=== PATIENT | male | born 1980 | race Caucasian/White ===

== ENCOUNTER 2016-09-29 22:03 | Emergency (ER) | payer SELFPAY ==
--- NOTE | 2016-09-29 22:36 | PHYS DOC ---
General Chief Complaint: finger amputation Stated Complaint: LACERATION LEFT HAND Time Seen by MD: 22:06 Source: patient, family Exam Limitations: clinical condition Problems: History of Present Illness Initial Comments Pt is 36/M to ED with his uncle for left 4th finger injury. Pt states that earlier tonight (reportedly 3 hours prior to arrival) he used tin snips at home to cut off his left ring finger at PIP joint. Pt mumbles some of which is unintelligible, he talks about a mideival game he lost. Denies any pain. There is oozing blood no pulsatile bleeding. Pt uncle states pt "normal" until a few days ago when he suddenly became obsessed with reading the Bible and the apocalypse. Uncle says pt felt he needed to prove something to someone by cutting off his own finger to save him from the apocalypse. Pt lives in uncle's basement has no known prior psychiatric history or suicide attempts, uncle says pt is an alcoholic. Pt did mention to his uncle today "I have to go to [place] to burn all the books." Fingertip not present in ED, family looking for it. Td status unknown, will update now. Pt is right hand dominant. ED VS: HR 132 bpm, RR 21, 100% RA, 134/87 Onset: other (3 hours prior) Severity: severe Pain/Injury Location: left 4th finger Method of Injury: incised Modifying Factors: improves with other Allergies: Coded Allergies: No Known Allergies (Verified Allergy, Unknown, 09/29/16) Past Medical History Medical History: other (alcoholism) Surgical History: noncontributory Social History Alcohol: heavy Drugs: marijuana Review of Systems Constitutional: denies fever Respiratory: denies cough, denies shortness of breath Cardiovascular: denies chest pain, denies syncope Gastrointestinal: denies diarrhea, denies vomiting Musculoskeletal: see HPI Skin: see HPI Psychiatric/Neurological: see HPI Physical Exam General Appearance: moderate distress (covered in dried blood) HEENT: normal ENT inspection Neck: full range of motion, supple Cardiovascular/Respiratory: normal peripheral pulses, normal breath sounds, tachycardia Back: no CVA tenderness, no vertebral tenderness Elbow/Forearm: normal inspection, non-tender, no evidence of injury Wrist: normal inspection, non-tender, no evidence of injury Hand: deformity (appears clean transverse amputation at PIP joint left 4th finger no FB/purulence/pulsatile bleeding.) Neurologic/Tendon: normal sensation, normal motor functions, responds to pain Psychiatric: alert, other (confused, tangential with flight of ideas, delusions , denies SI/HI) Skin: pallor (poor turgor) Orders, Labs, Meds 2234: Family is searching basement where pt lives to try to find missing finger. 2246: Uncle notified me finger found and is en route to ED. 2246: transfer contacted and history given, page out to Dr Ramos Plastics/ Hand surgery now awaiting call back from . 2322: I discussed pt with Dr Ramos who recommends pt transfer to ED for wound closure only. Pt with comorbid polypharmacy and impending rhabdo contraindicating attempt at replantation. As such, acceptance for pt transfer will need to be ED physician. Waiting for return call to discuss with ED. 0008: No return call, I called Transfer and spoke with Taya. She notifies that transfer discussed with ED and Dr Ramos may accept pt thru ED without ED physician. She reports Dr Ramos is accepting physician. Left Fingers: appears to be a clean transverse fracture/amputation just distal to PIP joint. Pertinent Labs: WBC 12.7, Hb 14.7, K+ 3.3, CK 730, etoh < 10, UDS +cocaine, cannabinoids, amphetamine/methamphetamine ED Course: 2 IVs started, NS 1L bolus/rocephin 1g/Haldol 5mg given IV. Tdap, Klor-con 20meq PO. Pt remained calm/confused thru ED course, no pain complaints. Pt will need finger repair and inpatient management of CK. With self mutilation and verbalized threats to [facility] pt qualifies for involuntary psychiatric placement at this time. Amputated portion of finger irrigated with NS and wrapped in saline moistened gauze, placed in specimen container. Will send with patient. IMPRESSIONS: Acute Psychosis (likely narcotic induced) Left 4th Finger Self-Amputation Polysubstance Abuse (cocaine, marijuana, amphetamine/methamphetamine, alcohol) Elevated CK threatened Rhabdomyolysis Hypokalemia 0021: EMS loaded pt and leaving for transfer to ED. EKG (timed 0016) just obtained/reviewed, sinus tachycardia 102 bpm, appears to be questionable anterior ST elevation with reciprocal changes. Pt denies chest pain, EKG questionable STEMI. I called Transfer to notify and coordinator requested continue with ground transfer, fax EKG to Transfer and ED. She will apprise Dr Ramos and call us back with any change of course. Anticoagulation contraindicated at this point with actively bleeding finger amputation. Departure Time of Disposition: 00:04 Disposition: 05 XFER OTHER Diagnosis: L 4th Finger Amputation, Psychosis, Polysubstance Condition: STABLE Additional Instructions: EMS transfer to ED, Dr Ramos (Plastics/Hand) is accepting. JOSE C MAJOR DO September 29, 2016 22:36
[2016-09-29 22:44] LABS: BASO % 0 % (0-3); EOS % 0 % (0-3); HEMATOCRIT 42.8 % (39.0-53.0); HEMOGLOBIN 14.7 g/dL (13.0-17.5); LYMPH # 1.6 x10^3/uL (1.0-4.8); LYMPH % 13 % (24-48); MEAN CORPUSCULAR HEMOGLOBIN 29 pg (25-35); MEAN CORPUSCULAR HGB CONC 34 g/dL (31-37); MEAN CORPUSCULAR VOLUME 84 fL (79-100); MONO % 8 % (0-9); NEUT # 10.1 x10^3uL (1.8-7.7); NEUT % 79 % (31-73); PLATELET COUNT 334 x10^3/uL (140-400); RED CELL DISTRIBUTION WIDTH 13.1 % (11.5-14.5); WHITE BLOOD COUNT 12.7 x10^3/uL (4.0-11.0)
[2016-09-29] MEDS ORDERED: IV NORMAL SALINE 1,000ML 1,000 ML IV SCH ×2 (22:45→23:51)
[2016-09-29] MEDS ORDERED: ONDANSETRON PF 4 MG/2 ML VIAL. IV ONE (22:50)
[2016-09-29] MEDS ORDERED: HALOPERIDOL LACT 5 MG/ML VIAL. IM ONE (22:50)
[2016-09-29] MEDS ORDERED: DIPHTH,PERTUSS(ACELL),TET TOX 0.5 ML DISP.SYRIN. VAX IM ONE (22:50)
[2016-09-29 23:00] LABS: ALBUMIN 4.3 g/dL (3.4-5.0); ALBUMIN/GLOBULIN RATIO 1.2 (1.0-1.7); CALCIUM 10.2 mg/dL (8.5-10.1); CREATININE 1.3 mg/dL (0.7-1.3); GFR 62.5; POTASSIUM 3.3 mmol/L (3.5-5.1); TOTAL PROTEIN 7.9 g/dL (6.4-8.2)
[2016-09-29] MEDS ORDERED: IV NORMAL SALINE 50ML 50 ML ONE (23:07)
[2016-09-29] MEDS ORDERED: cefTRIAXone SODIUM 1 GM VIAL IV ONE (23:07)
[2016-09-29 23:22] LABS: BARBITURATES NEG (NEG); BENZODIAZEPINES NEG (NEG); CANNABINOIDS POS (NEG); COCAINE POS (NEG); METHADONE NEG (NEG); OPIATES NEG (NEG); PHENCYCLIDINE NEG (NEG)
[2016-09-29 23:24] LABS: AMPHETAMINE/METHAMPHETAMINE POS (NEG)
[2016-09-29] MEDS ORDERED: POTASSIUM CHLORIDE 20 MEQ TABLET.ER. PO ONE (23:55)
[2016-09-30 00:18] VITALS: BP 132/76
--- NOTE | 2016-09-30 05:21 | EKG ---
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
--- NOTE | 2016-09-30 08:38 | RAD ---
Indication injury. AP lateral views of the hand were obtained as well as an oblique view containing the second through the fifth digits. There is amputation at the level of the midportion of the middle phalanx of the ring finger. Soft tissue swelling is noted. An additional bony abnormality is not seen
== END 2016-09-30 00:20 | disposition short-term general hospital (02) ==
LOC: ER 22:03
DX: S68.115A Complete traumatic metacarpophalangeal amputation of left ring finger, initial encounter (principal); F29 Unspecified psychosis not due to a substance or known physiological condition; F19.10 Other psychoactive substance abuse, uncomplicated; E87.6 Hypokalemia; F12.10 Cannabis abuse, uncomplicated; F10.10 Alcohol abuse, uncomplicated; W45.8XXA Other foreign body or object entering through skin, initial encounter; Y93.89 Activity, other specified; Y99.8 Other external cause status; Y92.89 Other specified places as the place of occurrence of the external cause
CPT/HCPCS: 36415; 73140; 80053; 82550; 84484; 85027; 86900; 86901; 90471; 90715; 93005; 96361; 96365; 96372; 96375; 99285; G0480; G0481; J0696; J1630; J2405; J7030

== ENCOUNTER 2017-01-12 09:22 | Inpatient (IN) | payer OTHER ==
[~2017-01-12] VITALS: Ht 175.3 cm; Wt 81.4 kg
--- NOTE | 2017-01-12 09:38 | ED.ADGEN ---
Past History Past Medical History: No Pertinent History Past Surgical History: No Surgical History Alcohol Use: Occasionally Drug Use: Marijuana Adult General HPI HPI Patient is a 86-year-old man, history of methamphetamine abuse, bipolar disorder , self injures behaviors, including partial limitation of a finger while under the influence of methamphetamines, who presents to the emergency department via EMS with report of methamphetamine abuse and suicidal ideation. Per EMS, the patient's father stated to EMS that the patient had told him "I want my life", and stated that he would use a sword. Currently, patient is denying any suicidal ideation, any homicidal ideation, states "I really would have a sword" , he is oriented to self, place, and time. He denies any auditory or visual hallucinations. States that he is "supposed to be taking medications but I don't ". He denies any complaints this time, states he's been using methamphetamine for several days, is noted to be extremely diaphoretic, states "that's why I am so sweaty". He denies any chest pain, shortness of breath, nausea, vomiting, self injures behaviors or ingestions aside from methamphetamines and alcohol over the past 3 days. Patient is tachycardic upon arrival, heart rate in the 1 teens, blood pressure is normotensive, oxygen saturation is 99-100% room air, was a tray rate is 20 and unlabored. Review of Systems Review of Systems Constitutional: Denies fever or chills [] Eyes: Denies change in visual acuity, redness, or eye pain [] HENT: Denies nasal congestion or sore throat [] Respiratory: Denies cough or shortness of breath [] Cardiovascular: No additional information not addressed in HPI [] GI: Denies abdominal pain, nausea, vomiting, bloody stools or diarrhea [] : Denies dysuria or hematuria [] Musculoskeletal: Denies back pain or joint pain [] Integument: Denies rash or skin lesions [] Neurologic: Denies headache, focal weakness or sensory changes [] Endocrine: Denies polyuria or polydipsia [] Current Medications Current Medications Current Medications Medications (Trade) Dose Ordered Sig/Molly Start Time Stop Time Status Last Admin Dose Admin Multivitamins/ Minerals 10 ml/ Folic Acid 1 mg/ Thiamine HCl 100 mg/Dextrose/ Lactated Ringer's 1,011.2 ml @ 0 mls/hr 1X ONCE 8/18/17 11:30 01/12/17 11:31 DC 01/12/17 11:30 0 MLS/HR Sodium Chloride 1,000 ml @ 1,000 mls/hr 1X ONCE 01/12/17 09:45 01/12/17 10:44 DC 01/12/17 09:45 1,000 MLS/HR Allergies Allergies Allergies Coded Allergies Type Severity Reaction Last Updated Verified No Known Allergies Allergy Unknown 09/29/16 Yes Physical Exam Physical Exam Constitutional: Well developed, well nourished, no acute distress, diaphoretic, non-toxic appearance. [] HENT: Normocephalic, atraumatic, bilateral external ears normal, oropharynx moist, no oral exudates, nose normal. [] Eyes: PERRLA, EOMI, conjunctiva normal, no discharge. [] Neck: Normal range of motion, no tenderness, supple, no stridor. [] Cardiovascular:Heart rate regular rhythm, no murmur, S1, S2, rubs or gallops. [] Lungs & Thorax: Bilateral breath sounds clear to auscultation, no wheezing, rhonchi, rales. No chest wall crepitus or tenderness. [] Abdomen: Bowel sounds normal, soft, no tenderness, no rebound, rigidity, no guarding, no masses, no pulsatile masses. [] Skin: Warm, diaphoretic, pale, no erythema, no rash. [] Back: No tenderness, no CVA tenderness. [] Extremities: No tenderness, no cyanosis, no clubbing, ROM intact, no edema. Negative Homans sign. [] Neurologic: Alert and oriented X 3, normal motor function, normal sensory function, no focal deficits noted. [] Psychologic: Affect is flat, judgement normal, mood normal. [] Current Patient Data Lab Results Laboratory Tests Test 01/12/17 09:50 White Blood Count 17.2 x10^3/uL (4.0-11.0) H Red Blood Count 5.55 x10^6/uL (4.30-5.70) Hemoglobin 15.5 g/dL (13.0-17.5) Hematocrit 45.9 % (39.0-53.0) Mean Corpuscular Volume 83 fL (79-100) Mean Corpuscular Hemoglobin 28 pg (25-35) Mean Corpuscular Hemoglobin Concent 34 g/dL (31-37) Red Cell Distribution Width 13.6 % (11.5-14.5) Platelet Count 371 x10^3/uL (140-400) Neutrophils (%) (Auto) 74 % (31-73) H Lymphocytes (%) (Auto) 17 % (24-48) L Monocytes (%) (Auto) 9 % (0-9) Eosinophils (%) (Auto) 0 % (0-3) Basophils (%) (Auto) 1 % (0-3) Neutrophils # (Auto) 12.7 x10^3uL (1.8-7.7) H Lymphocytes # (Auto) 2.9 x10^3/uL (1.0-4.8) Monocytes # (Auto) 1.5 x10^3/uL (0.0-1.1) H Eosinophils # (Auto) 0.0 x10^3/uL (0.0-0.7) Basophils # (Auto) 0.1 x10^3/uL (0.0-0.2) Segmented Neutrophils % 67 % (35-66) H Lymphocytes % 24 % (24-48) Monocytes % 7 % (0-10) Dohle Bodies Few Platelet Estimate Adequate (ADEQUATE) Large Platelets Occ Giant Platelets Occ Stomatocytes Few Sodium Level 139 mmol/L (136-145) Potassium Level 3.2 mmol/L (3.5-5.1) L Chloride Level 100 mmol/L (98-107) Carbon Dioxide Level 26 mmol/L (21-32) Anion Gap 13 (6-14) Blood Urea Nitrogen 18 mg/dL (8-26) Creatinine 1.9 mg/dL (0.7-1.3) H Estimated GFR (Cockcroft-Gault) 40.3 Glucose Level 99 mg/dL (70-99) Calcium Level 9.9 mg/dL (8.5-10.1) Total Bilirubin 0.6 mg/dL (0.2-1.0) Direct Bilirubin 0.2 mg/dL (0.0-0.2) Aspartate Amino Transferase (AST) 24 U/L (15-37) Alanine Aminotransferase (ALT) 73 U/L (16-63) H Alkaline Phosphatase 216 U/L (46-116) H Creatine Kinase 265 U/L (39-308) Creatine Kinase MB (Mass) 4.9 ng/mL (0.0-3.6) H Creatine Kinase MB Relative Index 1.8 % (0-4) Troponin I Quantitative < 0.017 ng/mL (0-0.055) Total Protein 8.7 g/dL (6.4-8.2) H Albumin 4.4 g/dL (3.4-5.0) Ethyl Alcohol Level < 10 mg/dL (0-10) EKG EKG EC: Sinus tachycardia, heart rate 107 beats/minute, right axis deviation , QTC of 443, ME 150, QRS of 86, patient with contour abnormality noted in the anterior septal leads, but no significant changes noted from 09/30/2016, abnormal ECG, does not meet STEMI criteria. As interpreted by me. Radiology/Procedures Radiology/Procedures Not indicated. [] Course & Med Decision Making Course & Med Decision Making Pertinent Labs and Imaging studies reviewed. (See chart for details) As stated, patient is a and O 3, and cooperative in the ED. Is denying any suicidal ideation, any homicidal ideation, any auditory or visual hallucinations or other issues at this time. Nursemaid he did speak with patient 's father, who states that the patient early this morning for EMS was called was noted to be rocking back and forth by father, and father stated that "you' re using that stuff again", and patient stated that he had been using methamphetamines, and stated that "Tyrell once made an my life". Patient states he does not recall this episode at this time. As stated, he is denying any concerning ideation or plan at this point. Laboratory studies obtained, reveal a creatinine is elevated at 1.9, with an elevated CK MB index, previous creatinine was 1.3. Myoglobin is not available this time. Patient has received a liter of normal saline, and has banana bag infusing, the potassium of 3.2. Concern for dehydration, with rhabdomyolysis, with persistent tachycardia, with drug abuse, patient has not yet produced urine at this point. I did speak with Dr. Bowling, due to the patient's persistent tachycardia, evidence of dehydration without evidence of rhabdomyolysis, will admit to the telemetry floor for continued hydration, and monitoring, no indication of suicidal ideation or active psychiatric issues at this point, will continue to monitor closely. Patient accepted as a full admission to his service to the medical telemetry floor as stated. Bridge orders entered per discussion. Patient remained stable with mild tachycardia on the monitor, receiving IV fluids awaiting transfer to the floor. Final Impression Final Impression [] Problems: Dragon Disclaimer Dragon Disclaimer This electronic medical record was generated, in whole or in part, using a voice recognition dictation system. Departure: Impression: Primary Impression: Dehydration Additional Impression: Methamphetamine abuse Disposition: ADMITTED INPATIENT Admitting Physician: Eva Bowling Condition: IMPROVED ARMANDO CARDONA DO Jan 12, 2017 09:38
[2017-01-12] MEDS ORDERED: IV NORMAL SALINE 1,000ML 1,000 ML IV ONE (09:45)
[2017-01-12 10:02] LABS: BASO # 0.1 x10^3/uL (0.0-0.2); BASO % 1 % (0-3); EOS % 0 % (0-3); HEMATOCRIT 45.9 % (39.0-53.0); HEMOGLOBIN 15.5 g/dL (13.0-17.5); LYMPH # 2.9 x10^3/uL (1.0-4.8); LYMPH % 17 % (24-48); MEAN CORPUSCULAR HEMOGLOBIN 28 pg (25-35); MEAN CORPUSCULAR HGB CONC 34 g/dL (31-37); MEAN CORPUSCULAR VOLUME 83 fL (79-100); MONO # 1.5 x10^3/uL (0.0-1.1); MONO % 9 % (0-9); NEUT # 12.7 x10^3uL (1.8-7.7); NEUT % 74 % (31-73); PLATELET COUNT 371 x10^3/uL (140-400); RED BLOOD COUNT 5.55 x10^6/uL (4.30-5.70); RED CELL DISTRIBUTION WIDTH 13.6 % (11.5-14.5); WHITE BLOOD COUNT 17.2 x10^3/uL (4.0-11.0)
--- NOTE | 2017-01-12 10:14 | EKG ---
[address] [address] Test Date: 2017-01-12 Test Time: 09:45:03 Pat Name: VERONIQUE RICHARDSON Department: Room: Gender: M [employer] Room Supervisor: BETZY : 1980 Requested By: ARMANDO CARDONA Order Number: [id number] Reading MD: Measurements Intervals [place] Rate: 107 P: 154 [place]: 150 QRS: 81 QRSD: 86 T: 19 QT: 332 QTc: 443 Interpretive Statements SINUS TACHYCARDIA QRS(T) CONTOUR ABNORMALITY CONSIDER ANTEROSEPTAL MYOCARDIAL DAMAGE RI6.01 Unconfirmed report No previous ECG available for comparison
[2017-01-12 10:21] LABS: ALBUMIN 4.4 g/dL (3.4-5.0); CALCIUM 9.9 mg/dL (8.5-10.1); CREATININE 1.9 mg/dL (0.7-1.3); DIRECT BILIRUBIN 0.2 mg/dL (0.0-0.2); GFR 40.3; POTASSIUM 3.2 mmol/L (3.5-5.1); TOTAL BILIRUBIN 0.6 mg/dL (0.2-1.0); TOTAL PROTEIN 8.7 g/dL (6.4-8.2)
[2017-01-12 10:58] LABS: % LYMPHS 24 % (24-48); % MONOS 7 % (0-10); % SEGS 67 % (35-66); PLT ESTIMATE ADEQUATE (ADEQUATE)
[2017-01-12 10:59] LABS: STOMATOCYTES FEW
[2017-01-12] MEDS ORDERED: MVI, ADULT NO.4 WITH VIT K 10 ML, FOLIC ACID 1 MG, THIAMINE 100 MG in IV DEXTROSE 5%-LA... IV ONE ×4 (11:30)
[2017-01-12] MEDS ORDERED: IV NORMAL SALINE 1,000ML 1,000 ML IV SCH (11:58)
[2017-01-12] MEDS ORDERED: ONDANSETRON PF 4 MG/2 ML VIAL. IV PRN (12:00)
[2017-01-12 12:40] VITALS: BP 138/73
[2017-01-12] MEDS ORDERED: LORazepam 2 MG/ML VIAL IV PRN (13:45)
[2017-01-12 14:44] LABS: HEMATOCRIT 40.2 % (39.0-53.0); HEMOGLOBIN 13.6 g/dL (13.0-17.5); RED BLOOD COUNT 4.9 x10^6/uL (4.30-5.70); RED CELL DISTRIBUTION WIDTH 13.7 % (11.5-14.5); WHITE BLOOD COUNT 13.6 x10^3/uL (4.0-11.0)
[2017-01-12] MEDS: POTASSIUM CL 40MEQ IN 0.9%NACL 1,000 ML IV SCH ×2 (14:48→22:25)
[2017-01-12 15:02] LABS: CALCIUM 8.7 mg/dL (8.5-10.1); CREATININE 1.3 mg/dL (0.7-1.3); GFR 62.5; POTASSIUM 3.2 mmol/L (3.5-5.1)
[2017-01-12] MEDS ORDERED: FLUO10CA7 PO (15:48)
[2017-01-12] MEDS ORDERED: ALPR1TAB PO (15:50)
[2017-01-12 19:42] VITALS: BP 112/75
--- NOTE | 2017-01-12 20:11 | HP ---
ADMIT DATE: 01/12/2017 HISTORY OF PRESENT ILLNESS: The patient is a 36-year-old male patient with history methamphetamine abuse, bipolar disorder, self injury behaviors including partial amputation of his left ring finger while under the influence of methamphetamine, who was brought to the Emergency Department by EMS with report of methamphetamine abuse and suicidal ideation. Per the Emergency medical service personnel, the patient's father stated to the emergency medical personnel that the patient has told him, "I want to end my life" and stated that he would use ___. However, by the time he arrived to the Emergency Room, he denied any suicidal ideation, any homicidal ideation; however, he did state that there is a ___ in the basement, but he was not using it. He denied any auditory or visual hallucination. He was supposed to be taking medication as prescribed by the [facility], but he is not taking them. However, he stated that has been using amphetamine for several days. By the time he arrived to the Emergency Room, he was extremely diaphoretic, states "that is why I am sweaty." He denied any chest pain, shortness of breath, nausea, vomiting and self injury behavior in addition aside from amphetamine and alcohol over the past 3 days, although when I asked him, he said that he has been also abusing cocaine. He was tachycardic on arrival with a heart rate in 110, but normotensive. His oxygen saturation was normal. He was evaluated in the Emergency Room, was found to have leukocytosis. He was also found to be dehydrated with a creatinine of 1.5, hypokalemic and also has elevated CK and was admitted for IV fluid and to contact the [facility] to assist with management. PAST MEDICAL HISTORY: Significant for bipolar disorder, anxiety, questionable schizophrenia. He has had multiple suicidal attempts, at least according to him twice by cutting his wrist and one by amputating his left ring finger. PAST SURGICAL HISTORY: Significant for wisdom tooth extraction. ALLERGIES: He has no known drug allergies. MEDICATIONS: He is supposed to be medication as prescribed by the [facility], but does not know what they are. FAMILY HISTORY: He has 2 brothers and 2 stepsisters. His father is still alive and has diabetes. Mother is still alive, has cancer with the breast and ovarian cancer. SOCIAL HISTORY: He is single, never ; however, he has one daughter who lives with her mom. He smokes when he drinks alcohol, has been abusing amphetamine, marijuana as well as cocaine according to him. REVIEW OF SYSTEMS: As per history of present illness. PHYSICAL EXAMINATION: GENERAL: On arrival to the Emergency Room, the patient was pale, diaphoretic, but not jaundiced, cyanosed. No thyromegaly. No jugular venous distention. No lymphedema. VITAL SIGNS: His heart rate was 116, blood pressure was 138/73, temperature was 97.7, respiratory rate was 20, and oxygen saturation was 99%. HEAD, EYES, EARS, NOSE AND THROAT: Showed normocephalic, atraumatic. NECK: Supple. HEART: Showed normal first and second heart sounds with no gallop, rub or murmur. CHEST: Clear to auscultation. No crepitation or rhonchi. ABDOMEN: Distended, soft, nontender. NEUROLOGIC: He was awake, alert and seems very restless, agitated. Apparently, he has been talking to himself when answering while there are no people are round. All his cranial nerves are intact. He moves his extremities without difficulty. LABORATORY DATA: On arrival to the Emergency Room his lab work showed a serum sodium 139, potassium 3.2, chloride 100, bicarbonate 26, anion gap of 13, BUN 18, creatinine 1.9, estimated GFR was 40 mL per minute. His glucose 99, calcium was 9.9. Total bilirubin, AST, ALT were normal. Alkaline phosphatase slightly elevated. CK was 265. Total protein was 8.7, albumin was 4.4. His white cell count was 17,200, hemoglobin 15.5, hematocrit 45.9, MCV 83 and platelet count of 371,000 with normal manual differential. IMPRESSION: In summary, this is a 36-year-old male patient who was admitted with dehydration, methamphetamine, cocaine as well as alcohol and marijuana abuse. He apparently has underlying mental disorder the nature of which is not clear to me, but he probably has bipolar disorder versus schizophrenia. PLAN: To rehydrate him, replenish his potassium. We will contact the [facility] to find some more information about him and what medications he is supposed to be on. We will follow his labs and make sure that he will be hydrated. MATILDA TEIXEIRA MD DR: FACUNDO/duarte JOB#: [id number] / [id number]
[2017-01-12 23:39] VITALS: BP 110/78
--- NOTE | 2017-01-13 01:31 | ACF ---
Admission Criteria Forms DRUG INGESTION OR OVERDOSE Clinical Indications for Admission to Inpatient Care ( [place]/check or initial the applicable condition/criteria) Admission is indicated for severe toxicity as indicated by 1 or more of the following(1)(2)(3) )(4)(5)(6) I. Hemodynamic instability. II. Dangerous arrhythmia III. Respiratory abnormalities IV. Hypertension requiring inpatient treatment V. Specific finding indicating severe and likely prolonged or drug toxicity [X]. Inpatient admission required rather than observation care (See Drug Ingestion or Overdose: Observation Care guideline as appropriate) because1 or more of the following(9)(10) a) Altered mental status that is severe or persistent b) Clinical finding(e.g., metabolic acidosis, hypoglycemia, bradycardia) that is severe or persistent(11) c) Toxic drug level that is persistent or necessitates ongoing treatment ( e.g. acetaminophen overdose) d) Recurrent seizures [X]e) Psychiatric risk status not acceptable for outpatient management f) Continuous intravenous infusion of anticoagulation, platelet inhibitor, vasoactive,or antiarrhythmic medication(12)(13) g) Other condition, treatment or monitoring requiring inpatient admission Extended stay beyond goal length of stay may be needed for (4) (24) a) Neurologic or respiratory compromise(15)(25) b) Hemodynamic instability c) Persistent toxic drug levels (26) d) Severe drug toxicities or complications(5)(27)(28) e) Ongoing antidote treatment(e.g., acetaminophen overdose) (11)(23)(29)(29)(30) (31) f) Older patient The original [employer] content created by [employer] has been revised. The portions of the content which have been revised are identified through the use of italic text or in bold, and [employer] [employer] [facility] has neither reviewed nor approved the modified material. All other unmodified content is copyright [employer]. Please see references footnoted in the original [employer] edition 2017 Admission Criteria Met?: Yes KATHLEEN MCKEON Jan 13, 2017 01:31
[2017-01-13 03:23] LABS: BACTERIA,URINE FEW /HPF (0-FEW); BILIRUBIN,URINE NEG (NEG); CLARITY,URINE HAZY; COLOR,URINE YELLOW; GLUCOSE,URINE NEG (NEG); NITRITE,URINE NEG (NEG); RBC,URINE 0 /HPF (0-2); SQUAMOUS EPITHELIAL CELL,UR FEW /LPF; UROBILINOGEN,URINE 0.2 mg/dL (0.2 mg/dL); WBC,URINE 0 /HPF (0-4)
[2017-01-13 03:24] LABS: HYALINE CASTS, URINE OCC /HPF
[2017-01-13 03:25] LABS: BARBITURATES NEG (NEG); BENZODIAZEPINES NEG (NEG); CANNABINOIDS POS (NEG); COCAINE POS (NEG); METHADONE NEG (NEG); OPIATES NEG (NEG); PHENCYCLIDINE NEG (NEG)
[2017-01-13 03:26] LABS: AMPHETAMINE/METHAMPHETAMINE POS (NEG)
[2017-01-13 05:34] VITALS: BP 109/70
[2017-01-13 05:43] LABS: BASO # 0.1 x10^3/uL (0.0-0.2); BASO % 1 % (0-3); EOS # 0.3 x10^3/uL (0.0-0.7); EOS % 3 % (0-3); HEMATOCRIT 37.8 % (39.0-53.0); HEMOGLOBIN 12.5 g/dL (13.0-17.5); LYMPH # 2.7 x10^3/uL (1.0-4.8); LYMPH % 28 % (24-48); MEAN CORPUSCULAR HEMOGLOBIN 28 pg (25-35); MEAN CORPUSCULAR HGB CONC 33 g/dL (31-37); MEAN CORPUSCULAR VOLUME 84 fL (79-100); MONO # 0.7 x10^3/uL (0.0-1.1); MONO % 7 % (0-9); NEUT # 6.1 x10^3uL (1.8-7.7); NEUT % 61 % (31-73); PLATELET COUNT 276 x10^3/uL (140-400); RED BLOOD COUNT 4.51 x10^6/uL (4.30-5.70); RED CELL DISTRIBUTION WIDTH 13.9 % (11.5-14.5)
[2017-01-13] MEDS: POTASSIUM CL 40MEQ IN 0.9%NACL 1,000 ML IV SCH ×3 (05:45→19:18)
[2017-01-13 05:54] LABS: CALCIUM 8.2 mg/dL (8.5-10.1); GFR 84.5; POTASSIUM 4.3 mmol/L (3.5-5.1)
[2017-01-13] MEDS: FLUoxetine HCL 10 MG CAPSULE PO SCH (08:24)
[2017-01-13 11:59] VITALS: BP 104/63
[2017-01-13 15:09] VITALS: BP 118/73
[2017-01-13 18:44] VITALS: BP 100/68
[2017-01-13] MEDS ORDERED: risperiDONE 1 MG TABLET. PO ONE (20:30)
--- NOTE | 2017-01-13 23:13 | PDOC ---
Exam Johnathan Demential Exam: Johnathan Note: Please also refer to the separate dictated note~for this date of service dictated separately.~Patient seen individually. Discussed the patient with Nursing staff reviewed the chart.~Reviewed interim history and current functioning. Reviewed vital signs,~Labs/ Radiology~and current medications noted below. Continue current treatment with the changes noted in the dictated addendum note Assessment: Vital Signs: Vital Signs Date Time Temp Pulse Resp B/P (MAP) Pulse Ox O2 Delivery O2 Flow Rate FiO2 01/13/17 23:00 78 01/13/17 18:44 98.3 16 100/68 (79) 96 Room Air I&O Intake and Output 01/13/17 07:00 Intake Total 1970 ml Output Total 450 ml Balance 1520 ml Intake Oral 120 ml IV Total 1850 ml Output Urine Total 450 ml # Voids 1 Labs: Laboratory Tests Test 01/12/17 23:59 01/13/17 05:10 Urine Collection Type Unknown Urine Color Yellow Urine Clarity Hazy Urine pH 6.0 Urine Specific [place] 1.020 Urine Protein Neg (NEG-TRACE) Urine Glucose (UA) Neg mg/dL (NEG) Urine Ketones (Stick) 15 mg/dL (NEG) Urine Blood Neg (NEG) Urine Nitrite Neg (NEG) Urine Bilirubin Neg (NEG) Urine Urobilinogen Dipstick 0.2 mg/dL (0.2 mg/dL) Urine Leukocyte Esterase Neg (NEG) Urine RBC 0 /HPF (0-2) Urine WBC 0 /HPF (0-4) Urine Squamous Epithelial Cells Few /LPF Urine Bacteria Few /HPF (0-FEW) Urine Hyaline Casts Occ /HPF Urine Mucus Mod /LPF Urine Opiates Screen Neg (NEG) Urine Methadone Screen Neg (NEG) Urine Barbiturates Neg (NEG) Urine Phencyclidine Screen Neg (NEG) Urine Amphetamine/Methamphetamine Pos (NEG) Urine Benzodiazepines Screen Neg (NEG) Urine Cocaine Screen Pos (NEG) Urine Cannabinoids Screen Pos (NEG) Urine Ethyl Alcohol Neg (NEG) White Blood Count 10.0 x10^3/uL (4.0-11.0) Red Blood Count 4.51 x10^6/uL (4.30-5.70) Hemoglobin 12.5 g/dL (13.0-17.5) L Hematocrit 37.8 % (39.0-53.0) L Mean Corpuscular Volume 84 fL (79-100) Mean Corpuscular Hemoglobin 28 pg (25-35) Mean Corpuscular Hemoglobin Concent 33 g/dL (31-37) Red Cell Distribution Width 13.9 % (11.5-14.5) Platelet Count 276 x10^3/uL (140-400) Neutrophils (%) (Auto) 61 % (31-73) Lymphocytes (%) (Auto) 28 % (24-48) Monocytes (%) (Auto) 7 % (0-9) Eosinophils (%) (Auto) 3 % (0-3) Basophils (%) (Auto) 1 % (0-3) Neutrophils # (Auto) 6.1 x10^3uL (1.8-7.7) Lymphocytes # (Auto) 2.7 x10^3/uL (1.0-4.8) Monocytes # (Auto) 0.7 x10^3/uL (0.0-1.1) Eosinophils # (Auto) 0.3 x10^3/uL (0.0-0.7) Basophils # (Auto) 0.1 x10^3/uL (0.0-0.2) Sodium Level 141 mmol/L (136-145) Potassium Level 4.3 mmol/L (3.5-5.1) Chloride Level 109 mmol/L (98-107) H Carbon Dioxide Level 23 mmol/L (21-32) Anion Gap 9 (6-14) Blood Urea Nitrogen 14 mg/dL (8-26) Creatinine 1.0 mg/dL (0.7-1.3) Estimated GFR (Cockcroft-Gault) 84.5 Glucose Level 71 mg/dL (70-99) Calcium Level 8.2 mg/dL (8.5-10.1) L Creatine Kinase 299 U/L (39-308) Creatine Kinase MB (Mass) 6.7 ng/mL (0.0-3.6) H Creatine Kinase MB Relative Index 2.2 % (0-4) Current Medications: Meds: Current Medications Sodium Chloride 1,000 ml @ 1,000 mls/hr 1X ONCE IV Last administered on t 09:45; Start 01/12/17 at 09:45; Stop 01/12/17 at 10:44; Status DC Multivitamins/ Minerals 10 ml/ Folic Acid 1 mg/ Thiamine HCl 100 mg/Dextrose/ Lactated Ringer's 1,011.2 ml @ 0 mls/hr 1X ONCE IV Last administered on 11:30; Start 01/12/17 at 11:30; Stop 01/12/17 at 11:31; Status DC Ondansetron HCl (Zofran) 4 mg PRN Q4HRS PRN IV NAUSEA/VOMITING; Start 01/12/17 at 12:00; Stop 01/13/17 at 11:59; Status DC Sodium Chloride 1,000 ml @ 125 mls/hr Q8H IV Last administered on 01/12/17 13 :10; Start 01/12/17 at 11:58; Stop 01/12/17 at 14:32; Status DC Lorazepam (Ativan) 2 mg PRN Q4HRS PRN IV ANXIETY / AGITATION Last administered on 01/12/17 13:48; Start 01/12/17 at 13:45 Potassium Chloride/Sodium Chloride 1,000 ml @ 125 mls/hr Q8H IV Last administered on 01/13/17 05:45; Start 01/12/17 at 14:30 Fluoxetine HCl (PROzac) 10 mg DAILY PO Last administered on 01/13/17 08:24; Start 01/13/17 at 09:00 Risperidone (RisperDAL) 1 mg 1X ONCE PO Last administered on 01/13/17 20:31; Start 01/13/17 at 20:30; Stop 01/13/17 at 20:31; Status DC Risperidone (RisperDAL) 1 mg DAILY PO ; Start 01/14/17 at 09:00 Active Scripts Active Reported Xanax Xr (Alprazolam) 1 Mg Tab.er.24h 1 Tab PO DAILY Fluoxetine Hcl 10 Mg Capsule 1 Cap PO DAILY Diagnosis: Problems: (1) Dehydration (2) Methamphetamine abuse MATT VALDEZ MD Jan 13, 2017 23:13
[2017-01-14 05:14] VITALS: BP 96/66
[2017-01-14] MEDS: POTASSIUM CL 40MEQ IN 0.9%NACL 1,000 ML IV SCH ×2 (06:30→14:30)
[2017-01-14] MEDS: FLUoxetine HCL 10 MG CAPSULE PO SCH (08:12)
[2017-01-14] MEDS ORDERED: risperiDONE 1 MG TABLET. PO SCH (09:00)
[2017-01-14 11:00] VITALS: BP 143/93
[2017-01-14 15:21] VITALS: BP 104/66
[2017-01-14 18:20] VITALS: BP 96/62
[2017-01-14] MEDS: NICOTINE 14MG PATCH. TD SCH (18:29)
--- NOTE | 2017-01-14 19:50 | PDOC ---
Exam Johnathan Demential Exam: Johnathan Note: Please also refer to the separate dictated note~for this date of service dictated separately.~Patient seen individually. Discussed the patient with Nursing staff reviewed the chart.~Reviewed interim history and current functioning. Reviewed vital signs,~Labs/ Radiology~and current medications noted below. Continue current treatment with the changes noted in the dictated addendum note Assessment: Vital Signs: Vital Signs Date Time Temp Pulse Resp B/P (MAP) Pulse Ox O2 Delivery O2 Flow Rate FiO2 01/14/17 18:20 98.4 79 18 96/62 (73) 95 01/14/17 15:21 Room Air I&O Intake and Output 01/14/17 07:00 Intake Total 1450 ml Balance 1450 ml Intake Oral 1200 ml IV Total 250 ml # Voids 7 Current Medications: Meds: Current Medications Sodium Chloride 1,000 ml @ 1,000 mls/hr 1X ONCE IV Last administered on 09:45; Start 01/12/17 at 09:45; Stop 01/12/17 at 10:44; Status DC Multivitamins/ Minerals 10 ml/ Folic Acid 1 mg/ Thiamine HCl 100 mg/Dextrose/ Lactated Ringer's 1,011.2 ml @ 0 mls/hr 1X ONCE IV Last administered on 11:30; Start 01/12/17 at 11:30; Stop 01/12/17 at 11:31; Status DC Ondansetron HCl (Zofran) 4 mg PRN Q4HRS PRN IV NAUSEA/VOMITING; Start 01/12/17 at 12:00; Stop 01/13/17 at 11:59; Status DC Sodium Chloride 1,000 ml @ 125 mls/hr Q8H IV Last administered on 01/12/17 13 :10; Start 01/12/17 at 11:58; Stop 01/12/17 at 14:32; Status DC Lorazepam (Ativan) 2 mg PRN Q4HRS PRN IV ANXIETY / AGITATION Last administered on 01/12/17 13:48; Start 01/12/17 at 13:45 Potassium Chloride/Sodium Chloride 1,000 ml @ 125 mls/hr Q8H IV Last administered on 01/13/17 05:45; Start 01/12/17 at 14:30; Stop 01/14/17 at 18:45 ; Status DC Fluoxetine HCl (PROzac) 10 mg DAILY PO Last administered on 01/14/17 08:12; Start 01/13/17 at 09:00 Risperidone (RisperDAL) 1 mg 1X ONCE PO Last administered on 01/13/17 20:31; Start 01/13/17 at 20:30; Stop 01/13/17 at 20:31; Status DC Risperidone (RisperDAL) 1 mg DAILY PO Last administered on 01/14/17 08:12; Start 01/14/17 at 09:00; Stop 01/14/17 at 15:25; Status DC Risperidone (RisperDAL) 1.5 mg DAILY PO ; Start 01/15/17 at 09:00 Nicotine (Nicoderm Cq 14mg) 1 patch DAILY TD Last administered on 01/14/17 18: 29; Start 01/14/17 at 18:30 Active Scripts Active Reported Xanax Xr (Alprazolam) 1 Mg Tab.er.24h 1 Tab PO DAILY Fluoxetine Hcl 10 Mg Capsule 1 Cap PO DAILY Diagnosis: Problems: (1) Methamphetamine abuse (2) Schizophrenia, disorganized, subchronic with acute exacerbation (3) Psychosis, atypical MATT VALDEZ MD Jan 14, 2017 19:50
[2017-01-14] MEDS ORDERED: risperiDONE 0.25 MG TABLET. PO ONE (20:30)
--- NOTE | 2017-01-14 22:50 | CONS ---
DATE OF CONSULTATION: 01/13/2017 This is a late entry for 01/13/2017 that covers elements not covered in my initial note of 01/13/2017. The patient was seen individually evening of 01/13/2017. Discussed the patient with his uncle who was visiting him in his room and with nursing staff, reviewed the chart, reviewed information for consult requested by Dr. Bowling after the patient was admitted, "I want my life to end." Reportedly, the patient stated "the lord wants me to ." The patient took an overdose of methamphetamine, cocaine, and marijuana. Reportedly, he has a diagnosis of schizoaffective disorder versus schizophrenia treated outpatient at the [facility], but he has been noncompliant with his treatment recently. CHIEF COMPLAINT: "That is the day Seymour Tam was killed. My birthday. The bible says on all of this, I am right." "The eclipse means it is going to happen." HISTORY OF PRESENT ILLNESS: The patient has a history of methamphetamine abuse. Self-injurious behaviors including an episode of partial amputation of his left ring finger while under the influence of methamphetamine. He was brought to the Emergency Department via EMS with suicidal ideation and methamphetamine abuse. The patient's father told the ER staff that the patient had shared with the father "I want to end my life and that he would continue to use methamphetamine. Reportedly, however, by the time the patient arrived at the Emergency Room, he denied suicidal or homicidal ideation. Reportedly, the patient lives in the basement of the home in which his father and uncle live upstairs. He has been isolative, withdrawn, spends most of the time in the basement. On close questioning, the patient was initially very evasive, not sharing any of the psychotic symptoms with me, but later was able to share fairly significant psychotic symptoms surrounding the eclipse and the Bible and ____ killing of Seymour Tam and implications for various signs he has seen around him and what they imply as far as his life is concerned. It was all fairly bizarre. He has been noncompliant with the psychotropics given at the [facility]. While in the ER, he was diaphoretic. He has also been abusing alcohol, but details are unclear along with cocaine abuse. In the ER, he was found to have leukocytosis, dehydrated, creatinine 1.5, hypokalemia, elevated CK, admitted for IV fluids. He does have a history of mood swings consistent with schizoaffective disorder diagnosis. PAST PSYCHIATRIC HISTORY: As above and there are multiple suicide attempts in the past according to him, twice by cutting his wrist and one by amputating his left ring finger. PAST SURGICAL HISTORY: [place] tooth extraction. DRUG ALLERGIES: Negative. CURRENT PSYCHOTROPICS: Prozac 10 mg a day. SOCIAL HISTORY: The patient is single. He has 1 daughter who lives with her mother. History of alcohol abuse, amphetamine, marijuana, cocaine abuse noted above. FAMILY HISTORY: Noncontributory. MENTAL STATUS EXAM: The patient was seen at length individually in his room on . He was quite evasive initially, suspicious, refusing to answer questions, responses monosyllabic. Denied all psychotic symptoms. However, as I sat with him, he gradually opened up and was quite floridly psychotic. He is paranoid, delusional, talking about the killing of Bin Laden and the eclipse and his birthday and things written in the Bible in a fairly disconnected manner. Attention span short. Language function intact. Intellect average. No active suicidal or homicidal ideation, but difficult to assess given his evasiveness. He has denied suicidal or homicidal ideation to nursing staff as well. Heart rate 10, blood pressure 140/75, temperature 98, respirations 20, O2 sats 99%. IMPRESSION: Psychotic disorder, unspecified versus schizophrenia, chronic, undifferentiated with acute exacerbation versus schizoaffective disorder, bipolar type, mixed with psychotic features. Cocaine, methamphetamine, alcohol abuse history. PLAN: After I met with the patient in his room, his uncle met me and shared further information about his living arrangements in the basement increasing psychotic symptoms, noncompliance with treatment amongst other things noted above. We will go ahead and stop the patient on Risperdal 1 mg daily, but he does need inpatient psychiatric stabilization for his psychotropics. Reportedly, [facility] was contacted and said they would not coordinate an inpatient hospitalization. Nursing staff have attempted to call various psychiatric facilities, but for one reason or another ____ time of this dictation, no one has accepted the patient. We will go ahead and increase the Risperdal and if no placement is found till tomorrow morning, he may have to transition directly to outpatient at the [facility] via the walk-in clinic, which occurs between 9:00 a.m. and noon Sunday through Sunday. The patient denied active suicidal ideation as I questioned him evening of 01/13/2017. MATT VALDEZ MD DR: DIANDRA/duarte JOB#: [id number] / [id number]
[2017-01-14 22:58] VITALS: BP 87/60
--- NOTE | 2017-01-15 00:24 | PN ---
DATE: 01/14/2017 SUBJECTIVE: The patient sitting at the edge of the bed, eating his lunch comfortably in no apparent distress. He is definitely much more calmer and quieter. Denied any complaint. He was evaluated by Dr. Lisa, who recommended inpatient psychiatric treatment. Unfortunately, there are places despite looking around and second best option is for him to go to [facility] tomorrow and that is the plan for now. PHYSICAL EXAMINATION: GENERAL: When I examined him, he looked well and was clearly in no apparent respiratory distress. No pallor, jaundice, cyanosis or thyromegaly. No jugular venous distension. No limb edema. VITAL SIGNS: His heart rate was 77, blood pressure 143/93, temperature was 97.9, respiratory rate was 16, and oxygen saturation was 95%. The rest of clinical examination is unremarkable, has not really changed. His intake was 1415, no output was recorded. LABORATORY DATA: As of yesterday showed a white cell count of 10,000, hemoglobin 12.5, hematocrit 37.8, MCV 84 and platelet count 276,000. His chemistry showed a serum sodium 141, potassium 4.3, chloride 109, bicarbonate 23, anion gap of 9, BUN 14, creatinine 1, estimated GFR was 84 mL per minute. His calcium was 8.2, glucose 71. CK was 266. ASSESSMENT: 1. Dehydration. 2. Hypokalemia 3. Acute kidney injury. 4. Methamphetamine abuse. PLAN: My plan is to continue with current medication. Continue with IV fluid. He was started on Prozac and risperidone as well as lorazepam and we will arrange for him to be seen tomorrow at the [facility]. MATILDA TEIXEIRA MD DR: FACUNDO/duarte JOB#: [id number] / [id number]
--- NOTE | 2017-01-15 01:28 | PN ---
DATE: 01/14/2017 This note covers elements not covered by my initial note for 01/14/2017. SUBJECTIVE: The patient was seen individually, discussed with nursing staff, reviewed the chart. I have been contacted by the nursing staff 2 or 3 times since I last saw the patient yesterday. He was started on Risperdal. Arrangements were being made to try and get him to an inpatient psychiatric facility and he was refused at 5 or 6 different facilities whether they did not have any beds or they did not feel the environment was appropriate for him. He remains quiet, withdrawn, still psychotic. MENTAL STATUS EXAM: I met with the patient in his room. He is lying in bed, reasonably oriented. Speech moderate latency, often responses monosyllabic, still admits to thinking "too much" and paranoid, suspicious, but able to smile just a little bit. He is unsure whether the initiation of Risperdal has made a big difference so far. No side effects noted. No active suicidal or homicidal ideation. LABORATORY DATA: Reviewed. IMPRESSION: Schizophrenia, chronic undifferentiated versus paranoid with acute exacerbation, psychotic disorder, unspecified, methamphetamine abuse. PLAN: From a psychiatric standpoint, I had increased the Risperdal to 1.5 mg daily and we will go ahead and give an extra 0.5 mg dosage today and then starting tomorrow, increase it to 2 mg a day. I have left to open the option of transferring the patient to outpatient at the [facility] through their walk-in clinic Sunday on 01/15/2017. MATT VALDEZ MD DR: DIANDRA/duarte JOB#: [id number] / [id number]
[2017-01-15 05:05] VITALS: BP 94/57
[2017-01-15 06:07] LABS: ALBUMIN 3.2 g/dL (3.4-5.0); ALBUMIN/GLOBULIN RATIO 0.9 (1.0-1.7); CALCIUM 8.9 mg/dL (8.5-10.1); GFR 84.5; POTASSIUM 3.7 mmol/L (3.5-5.1); TOTAL BILIRUBIN 0.2 mg/dL (0.2-1.0); TOTAL PROTEIN 6.6 g/dL (6.4-8.2)
[2017-01-15] MEDS ORDERED: risperiDONE 1 MG TABLET. PO SCH ×2 (08:00→09:00)
[2017-01-15] MEDS: NICOTINE 14MG PATCH. TD SCH (08:21)
[2017-01-15] MEDS: FLUoxetine HCL 10 MG CAPSULE PO SCH (08:21)
[2017-01-15] MEDS ORDERED: RISP1TAB43 PO (08:36)
--- NOTE | 2017-01-15 21:46 | DS ---
DATE OF DISCHARGE: 01/15/2017 DISCHARGE DIAGNOSES: 1. Dehydration. 2. Hypokalemia, resolved. 3. Methamphetamine abuse. 4. Cocaine abuse. 5. Marijuana use. 6. Acute kidney injury, resolved. 7. Schizophrenia, undifferentiated versus paranoid, acute exacerbation. 8. Psychotic disorder. HOSPITAL COURSE: A 36-year-old male, who had multiple positive drug screens and was admitted with a report of methamphetamine abuse and suicidal ideation; however, he did not exhibit any suicidal ideation at that time or homicidal ideation. He was seen in consultation by . Repeated attempts were made to get him hospitalized as an inpatient for treatment of the schizophrenia; however, that was fruitless. We were able to get him back into the [facility] today to see the people that take care of him and that was the second best options. assisted with his care heavily and his hypokalemia was treated. On the day of discharge, blood pressure was 94/57, temperature 97.4, pulse 76, respirations 18, pulse ox 96% on room air. The patient had fluctuating borderline low blood sugars throughout his stay. PLAN: The patient was taken directly to the [facility] and his medications were reconciled. ASHLEY DAVIES DO DR: KIMI/duarte JOB#: [id number] / [id number]
== END 2017-01-15 09:42 | disposition home or self-care (01) | DRG 683 ==
LOC: ER 09:22 → EEVIPCON 11:33 → 1 SOUTH 11:33
PROVIDERS: ADMIT Internal Medicine; ATTEND Internal Medicine
DX: N17.9 Acute kidney failure, unspecified (principal); F20.0 Paranoid schizophrenia; F20.1 Disorganized schizophrenia; F14.10 Cocaine abuse, uncomplicated; F12.10 Cannabis abuse, uncomplicated; F31.9 Bipolar disorder, unspecified; F10.10 Alcohol abuse, uncomplicated; F15.10 Other stimulant abuse, uncomplicated; E86.0 Dehydration; E87.6 Hypokalemia; F41.9 Anxiety disorder, unspecified; Z91.5 Personal history of self-harm; Z83.3 Family history of diabetes mellitus; Z80.3 Family history of malignant neoplasm of breast; Z80.41 Family history of malignant neoplasm of ovary; Z91.19 Patient's noncompliance with other medical treatment and regimen
CPT/HCPCS: 36415; 80048; 80053; 80076; 80307; 81001; 82550; 82553; 83874; 84484; 85007; 85025; 85027; 93005; 96361; 96365; G0480; J2060; 99285-25; G0479; J7030

== ENCOUNTER → 2017-12-06 | Outpatient (CLI) | payer OTHER ==
[~2017-12-06] MED LIST: ALPR1TAB PO; FLUO10CA7 PO; RISP1TAB43 PO
[2017-12-06 11:01] LABS: BASO # 0.1 x10^3/uL (0.0-0.2); BASO % 1 % (0-3); EOS # 0.3 x10^3/uL (0.0-0.7); EOS % 4 % (0-3); HEMATOCRIT 47.7 % (39.0-53.0); HEMOGLOBIN 16.5 g/dL (13.0-17.5); LYMPH # 1.8 x10^3/uL (1.0-4.8); LYMPH % 23 % (24-48); MEAN CORPUSCULAR HEMOGLOBIN 30 pg (25-35); MEAN CORPUSCULAR HGB CONC 35 g/dL (31-37); MEAN CORPUSCULAR VOLUME 87 fL (79-100); MONO # 0.9 x10^3/uL (0.0-1.1); MONO % 12 % (0-9); NEUT # 4.9 x10^3uL (1.8-7.7); NEUT % 61 % (31-73); PLATELET COUNT 301 x10^3/uL (140-400); RED CELL DISTRIBUTION WIDTH 14.4 % (11.5-14.5); WHITE BLOOD COUNT 8.1 x10^3/uL (4.0-11.0)
[2017-12-06 11:28] LABS: ALBUMIN 3.7 g/dL (3.4-5.0); ALBUMIN/GLOBULIN RATIO 0.9 (1.0-1.7); CALCIUM 9.6 mg/dL (8.5-10.1); CREATININE 0.9 mg/dL (0.7-1.3); POTASSIUM 3.9 mmol/L (3.5-5.1); TOTAL BILIRUBIN 0.8 mg/dL (0.2-1.0); TOTAL PROTEIN 7.9 g/dL (6.4-8.2)
[2017-12-06 14:08] LABS: FREE T4 1.15 ng/dL (0.76-1.46); THYROID STIM HORMONE (TSH) 1.952 uIU/mL (0.358-3.740)
== END | disposition home or self-care (01) ==
LOC: LAB 10:05
PROVIDERS: ATTEND Physician Assistant Medical
DX: Z79.899 Other long term (current) drug therapy (principal)
CPT/HCPCS: 36415; 80053; 80061; 82306; 84439; 84443; 84480; 85025

== ENCOUNTER → 2018-05-23 | Outpatient (CLI) | payer OTHER ==
--- NOTE | 2018-05-23 10:34 | RAD ---
Exam : Lumbar spine 05/23/2018. Comparison: None. Indication: Low back pain Technique: 3 views of lumbosacral spine are provided. FINDINGS: There are 5 nonrib-bearing lumbar type vertebral bodies with minimal dextroconvex curvature centered at L3-L4. No acute fracture is identified. There is minimal retrolisthesis of L3 on L4 and L4 on L5. There is mild to moderate facet arthropathy lower lumbar spine. No definite spondylolysis is visualized. Mild to moderate anterior marginal osteophytosis is noted. There is nonobstructive bowel gas pattern. Visualized sacrum is intact. IMPRESSION: Minimal retrolisthesis of L3 on L4 and L4 on L5. No acute fracture. Electronically signed by: Margarita Mendoza MD (05/23/2018 10:31 AM) [id number]
== END | disposition home or self-care (01) ==
LOC: RAD 09:38
PROVIDERS: ATTEND Surgery
DX: M54.5 Low back pain (principal); M25.78 Osteophyte, vertebrae
CPT/HCPCS: 72100

== ENCOUNTER 2020-02-01 21:09 | Emergency (ER) | payer OTHER ==
[~2020-02-01] VITALS: Ht 175.3 cm; Wt 98.1 kg
[~2020-02-01 21:09] MED LIST changes: +FLUO10CA14 PO; -FLUO10CA7 PO
[2020-02-01 21:15] VITALS: BP 145/105
--- NOTE | 2020-02-01 21:22 | PHYS DOC ---
Past History Past Medical History: Alcoholism, Anxiety, Bipolar, Depression, Schizophrenia Past Surgical History: No Surgical History Alcohol Use: Heavy Drug Use: Cocaine, Marijuana, Methamphetamine Adult General Chief Complaint Chief Complaint: Drug Abuse HPI HPI Patient is a 39-year-old male who presents via EMS for intoxication. Patient has long history of alcohol dependence and illicit drug use. Patient reports drinking numerous beers this evening in addition to abusing marijuana and methamphetamine. Bystanders called EMS to see and evaluate patient as he appeared acutely intoxicated in public, EMS arrived on scene and ultimately brought patient to our facility for evaluation and continued medical care. On arrival, patient acutely intoxicated but otherwise has no complaints. Denies any trauma or recent infection, no fever or COVID-19 symptoms. Review of Systems Review of Systems Fourteen body systems of review of systems have been reviewed. See HPI for pertinent positives and negative responses, other raman all other systems are negative, non-pertinent or non-contributory Allergies Allergies Allergies Coded Allergies Type Severity Reaction Last Updated Verified No Known Allergies Allergy Unknown 09/29/16 Yes Physical Exam Physical Exam Constitutional: Unkept appearing, poor body hygiene, well nourished, no acute distress, non-toxic appearance. Acutely intoxicated HENT: Normocephalic, atraumatic, bilateral external ears normal, oropharynx moist, no oral exudates, nose normal. Eyes: PERRLA, EOMI, conjunctiva normal, no discharge. Neck: Normal range of motion, no tenderness, supple, no stridor. Cardiovascular: Heart rate tachycardic, sinus rhythm, no murmurs rubs or gallops Lungs & Thorax: Bilateral breath sounds clear to auscultation Abdomen: Bowel sounds normal, soft, no tenderness, no masses, no pulsatile masses. Nonsurgical abdomen, no peritoneal signs Skin: Warm, dry, no erythema, no rash. Back: No tenderness, no CVA tenderness. Extremities: No tenderness, no cyanosis, no clubbing, ROM intact, no edema. Neurologic: Alert and oriented X 3, grossly normal motor & sensory function, no focal deficits noted. Psychologic: Aggressive mood, pressured speech Current Patient Data Vital Signs Vital Signs Date Time Temp Pulse Resp B/P (MAP) Pulse Ox O2 Delivery O2 Flow Rate FiO2 02/01/20 21:13 98.4 120 18 145/105 (118) 95 Room Air Lab Results Laboratory Tests Test 02/01/20 21:46 White Blood Count 12.2 x10^3/uL (4.0-11.0) Red Blood Count 5.51 x10^6/uL (4.30-5.70) Hemoglobin 16.3 g/dL (13.0-17.5) Hematocrit 48.2 % (39.0-53.0) Mean Corpuscular Volume 87 fL (79-100) Mean Corpuscular Hemoglobin 30 pg (25-35) Mean Corpuscular Hemoglobin Concent 34 g/dL (31-37) Red Cell Distribution Width 13.9 % (11.5-14.5) Platelet Count 295 x10^3/uL (140-400) Neutrophils (%) (Auto) 60 % (31-73) Lymphocytes (%) (Auto) 31 % (24-48) Monocytes (%) (Auto) 7 % (0-9) Eosinophils (%) (Auto) 2 % (0-3) Basophils (%) (Auto) 1 % (0-3) Neutrophils # (Auto) 7.3 x10^3uL (1.8-7.7) Lymphocytes # (Auto) 3.8 x10^3/uL (1.0-4.8) Monocytes # (Auto) 0.8 x10^3/uL (0.0-1.1) Eosinophils # (Auto) 0.2 x10^3/uL (0.0-0.7) Basophils # (Auto) 0.1 x10^3/uL (0.0-0.2) Sodium Level 132 mmol/L (136-145) Potassium Level 3.4 mmol/L (3.5-5.1) Chloride Level 97 mmol/L (98-107) Carbon Dioxide Level 19 mmol/L (21-32) Anion Gap 16 (6-14) Blood Urea Nitrogen 8 mg/dL (8-26) Creatinine 0.8 mg/dL (0.7-1.3) Estimated GFR (Cockcroft-Gault) 107.6 BUN/Creatinine Ratio 10 (6-20) Glucose Level 108 mg/dL (70-99) Calcium Level 9.4 mg/dL (8.5-10.1) Total Bilirubin 0.6 mg/dL (0.2-1.0) Aspartate Amino Transf (AST/SGOT) 100 U/L (15-37) Alanine Aminotransferase (ALT/SGPT) 208 U/L (16-63) Alkaline Phosphatase 157 U/L (46-116) Ammonia 15 mcmol/L (11-34) Creatine Kinase 144 U/L (39-308) Troponin I Quantitative < 0.017 ng/mL (0-0.055) Total Protein 8.3 g/dL (6.4-8.2) Albumin 4.1 g/dL (3.4-5.0) Albumin/Globulin Ratio 1.0 (1.0-1.7) Ethyl Alcohol Level 299 mg/dL (0-10) EKG EKG EKG ordered and interpreted by myself at 2200 as sinus tachycardia at 116 bpm, unremarkable intervals, right axis deviation, no acute ischemic findings, no STEMI Radiology/Procedures Radiology/Procedures PROCEDURE: CT HEAD WO CONTRAST CT Head W/O Contrast: History: Reason: ALTERED MENTAL STATUS / Spl. Comparison: none Axial images were obtained without contrast. The villareal and white matter appears normal and symmetrical for the patients age. There is no mass effect, extraaxial fluid collections or hydrocephalus. There is no gross bleed. There is no focal loss of villareal-white matter distinction to suggest acute ischemia, i.e. stroke. Impression: No acute findings. RS Compliance Statement: One or more of the following individualized dose reduction techniques were utilized for this examination: 1. Automated exposure control 2. Adjustment of the mA and/or kV according to patient size 3. Use of iterative reconstruction technique Electronically signed by: Prashant Champion III, MD (02/01/2020 10:28 PM) [facility] PROCEDURE: PORTABLE CHEST 1V PORTABLE CHEST 1V Clinical History: Reason: ams / Spl. Instructions: / History: Technique: AP view of the chest was obtained at 02/01/2020 9:20 PM. Comparison: None. Findings: The cardiomediastinal silhouette is normal. The pulmonary vasculature is normal. The lungs and pleural margins are clear. Impression: No evidence of an acute cardiopulmonary process. Electronically signed by: Prashant Champion III, MD (02/01/2020 11:16 PM) [facility] Course & Med Decision Making Course & Med Decision Making Patient seen on immediate ER arrival via EMS Airway patent, breathing nonlabored, vitals remarkable for tachycardia only, IV access obtained Comprehensive history and physical exam of performed, decision was made to pursue advanced diagnostic work-up and acutely intoxicated patient despite him denying any symptoms at this time Patient reassessed numerous times throughout admission and clinically appeared to sober up from acutely intoxicated state. Ultimately, patient did not want to stay for further diagnostic work-up and medical intervention and voiced he wanted to leave AMA I have reviewed the relevant issues with the patient. They are aware of the suspected diagnosis of acute drug and alcohol intoxication suggested by limited medical exam The patient is AAOx3, demonstrates all four orellana elements of capacity to make decisions regarding the medical care offered. - Patient able to Communicate their treatment choice - Patient able to Understand and recall information - Patient able to Appreciate and process probable outcomes of their condition - Patient able to Reason through communication their rationalization about their choice of care options, regardless of whether I as their provider agree with their rationale. Risks and Recommendations: The risks of refusing recommended care that were disclosed and acknowledged by the patient include loss of current lifestyle, permanent mental impairment, and . The recommended medical care being refused has been discussed with the patient and is to stay for continued monitoring, workup, and possible treatment. Discharge Care: The patient understands they are welcome to return to the hospital at any time to receive the recommended care or any other care at any time, regardless of their ability to pay for such care. Discharge instructions were provided to the patient. Dragon Disclaimer Dragon Disclaimer This electronic medical record was generated, in whole or in part, using a voice recognition dictation system. Departure Departure: Impression: Primary Impression: Methamphetamine abuse Additional Impressions: EtOH dependence Schizophrenia Disposition: 07 AGAINST MEDICAL ADVICE (Did not sign papers prior to eloping) Condition: STABLE Referrals: THERESE ZHOU (PCP) Additional Instructions: You have been evaluated in the Emergency Department today. You are refusing further testing, imaging, and further admission and choosing to leave against medical advice. You were advised of your risks of leaving and understand that permanent harm, or even , can occur from failing to follow the recommendations of the physician. Please follow up with your primary care physician as needed. If you do not have a primary doctor, you can call your insurance company to find one. If you do not have insurance, you can go to the finance/registration department for more assistance. Return to the Emergency Department immediately if you experience worsening or uncontrolled pain, persistent fevers, recurrent vomiting, blood in vomit, blood in stool, dark tarry stool, chest pain, shortness of breath, or for any other concerning symptoms. Justification of Admission: Justification of Admission: Justification of Admission Dx: N/A Problem Qualifiers GRAYSON GALVAN DO Feb 01, 2020 21:22
[2020-02-01 22:11] LABS: BASO # 0.1 x10^3/uL (0.0-0.2); BASO % 1 % (0-3); EOS # 0.2 x10^3/uL (0.0-0.7); EOS % 2 % (0-3); HEMATOCRIT 48.2 % (39.0-53.0); HEMOGLOBIN 16.3 g/dL (13.0-17.5); LYMPH # 3.8 x10^3/uL (1.0-4.8); LYMPH % 31 % (24-48); MEAN CORPUSCULAR HEMOGLOBIN 30 pg (25-35); MEAN CORPUSCULAR HGB CONC 34 g/dL (31-37); MEAN CORPUSCULAR VOLUME 87 fL (79-100); MONO # 0.8 x10^3/uL (0.0-1.1); MONO % 7 % (0-9); NEUT # 7.3 x10^3uL (1.8-7.7); NEUT % 60 % (31-73); PLATELET COUNT 295 x10^3/uL (140-400); RED BLOOD COUNT 5.51 x10^6/uL (4.30-5.70); RED CELL DISTRIBUTION WIDTH 13.9 % (11.5-14.5); WHITE BLOOD COUNT 12.2 x10^3/uL (4.0-11.0)
[2020-02-01 22:28] LABS: CALCIUM 9.4 mg/dL (8.5-10.1); CREATININE 0.8 mg/dL (0.7-1.3); GFR 107.6; POTASSIUM 3.4 mmol/L (3.5-5.1)
--- NOTE | 2020-02-01 22:31 | RAD ---
CT Head W/O Contrast: History: Reason: ALTERED MENTAL STATUS / Spl. Comparison: none Axial images were obtained without contrast. The villareal and white matter appears normal and symmetrical for the patients age. There is no mass effect, extraaxial fluid collections or hydrocephalus. There is no gross bleed. There is no focal loss of villareal-white matter distinction to suggest acute ischemia, i.e. stroke. Impression: No acute findings. RS Compliance Statement: One or more of the following individualized dose reduction techniques were utilized for this examination: 1. Automated exposure control 2. Adjustment of the mA and/or kV according to patient size 3. Use of iterative reconstruction technique Electronically signed by: Prashant Champion III, MD (02/01/2020 10:28 PM) [facility]
[2020-02-01 22:40] LABS: ALBUMIN 4.1 g/dL (3.4-5.0); TOTAL BILIRUBIN 0.6 mg/dL (0.2-1.0); TOTAL PROTEIN 8.3 g/dL (6.4-8.2)
--- NOTE | 2020-02-01 23:18 | RAD ---
PORTABLE CHEST 1V Clinical History: Reason: ams / Spl. Instructions: / History: Technique: AP view of the chest was obtained at 02/01/2020 9:20 PM. Comparison: None. Findings: The cardiomediastinal silhouette is normal. The pulmonary vasculature is normal. The lungs and pleural margins are clear. Impression: No evidence of an acute cardiopulmonary process. Electronically signed by: Prashant Champion III, MD (02/01/2020 11:16 PM) [facility]
--- NOTE | 2020-02-02 14:39 | EKG ---
[address] [address] Test Date: 2020-02-01 Test Time: 21:52:49 Pat Name: VERONIQUE RICHARDSON Department: Room: Gender: M [employer] F[employer]: : 1980 Requested By: GRAYSON GALVAN Order Number: [id number] Reading MD: Measurements Intervals Combs Rate: 116 P: 18 NM: 164 QRS: 162 QRSD: 84 T: 9 QT: 312 QTc: 439 Interpretive Statements SINUS TACHYCARDIA LEFT ATRIAL ABNORMALITY ABNORMAL RIGHT AXIS DEVIATION CONSIDER RIGHT VENTRICULAR HYPERTROPHY ABNORMAL ECG RI6.02 No previous ECG available for comparison
== END 2020-02-01 22:40 | disposition left against medical advice (07) ==
LOC: ER 21:09
DX: F10.229 Alcohol dependence with intoxication, unspecified (principal); F15.10 Other stimulant abuse, uncomplicated; F20.9 Schizophrenia, unspecified; F41.9 Anxiety disorder, unspecified; F31.9 Bipolar disorder, unspecified; F12.10 Cannabis abuse, uncomplicated; F14.10 Cocaine abuse, uncomplicated; Y90.8 Blood alcohol level of 240 mg/100 ml or more
CPT/HCPCS: 36415; 70450; 71045; 80053; 82140; 82550; 84484; 85025; 93005; 99285; G0480

== ENCOUNTER 2020-08-26 05:44 | Emergency (ER) | payer SELFPAY ==
[~2020-08-26] VITALS: Ht 175.3 cm; Wt 91.0 kg
[~2020-08-26 05:44] MED LIST changes: -FLUO10CA14 PO; +FLUO10CA15 PO
[2020-08-26] MEDS ORDERED: IV NORMAL SALINE 1,000ML 1,000 ML IV ONE ×2 (06:30→07:30)
--- NOTE | 2020-08-26 06:30 | PHYS DOC ---
Past History Past Medical History: Alcoholism, Anxiety, Bipolar, Depression, Schizophrenia Past Medical History Limited secondary to intoxication (ODELL MONTGOMERY DO) Past Surgical History: No Surgical History Past Surgical History Limited secondary to intoxication (ODELL MONTGOMERY DO) Smoking: Quit Less Than 1 Year Alcohol Use: Heavy Drug Use: Cocaine, Marijuana, Methamphetamine Social History Limited secondary to intoxication (ODELL MONTGOMERY DO) General Adult EDM: Chief Complaint: DRUG ABUSE HPI: HPI: 39-year-old male presents via EMS with report of agitation after use of methamphetamines. Patient is unsure when he last used. Patient also reports history of alcohol use. Patient denies request for drug or alcohol rehab. Patient is not forthcoming with the reason that he presents to the ER. History of present illness limited secondary to intoxication (ODELL MONTGOMERY DO) Review of Systems: Review of Systems: Constitutional: Denies fever or chills Respiratory: Denies cough or shortness of breath Cardiovascular: Denies chest pain or palpitations GI: Denies nausea or vomiting Neurologic: Reports agitation Review of systems limited secondary to intoxication (ODELL MONTGOMERY DO) Current Medications: Current Meds: Current Medications Medications (Trade) Dose Ordered Sig/Molly Start Time Stop Time Status Last Admin Dose Admin Lorazepam (Ativan Inj) 2 mg STK-MED ONCE 08/26/20 06:17 08/26/20 06:18 DC Sodium Chloride 1,000 ml @ 1,000 mls/hr 1X ONCE 08/26/20 06:30 08/26/20 07:29 (ODELL MONTGOMERY DO) Allergies: Allergies: Allergies Coded Allergies Type Severity Reaction Last Updated Verified No Known Allergies Allergy Unknown 08/26/20 Yes (ODELL MONTGOMERY DO) Physical Exam: PE: Constitutional: Well developed, well nourished, poor hygiene, agitated HENT: Normocephalic, atraumatic Eyes: Conjunctiva normal, no discharge Neck: Normal range of motion, no tenderness, supple Lungs & Thorax: No respiratory distress, equal chest rise and fall Abdomen: Soft, no tenderness, no guarding/rebound tenderness/distention Skin: Warm, dry, no erythema, no rash Extremities: No tenderness, ROM intact, no edema Neurologic: Alert and oriented X 3, normal motor function, normal sensory function, no focal deficits noted; frequent jerking movements with bilateral legs Psychologic: Affect agitated, judgment abnormal (ODELL MONTGOMERY DO) Current Patient Data: Vital Signs: Vital Signs Date Time Temp Pulse Resp B/P (MAP) Pulse Ox O2 Delivery O2 Flow Rate FiO2 08/26/20 06:08 34 170/84 (112) 08/26/20 05:48 97.1 119 100 (ODELL MONTGOMERY DO) EKG: EKG: @0628 Sinus tachycardia at 117bpm, NO ST elevation, QRS 84ms, QT/QTc 344/485ms (ODELL MONTGOMERY DO) Radiology/Procedures: Radiology/Procedures: [] (ODELL MONTGOMERY DO) Heart Score: C/O Chest Pain: No (ODELL MONTGOMERY DO) Course & Med Decision Making: Course & Med Decision Making Pertinent Lab studies reviewed. (See chart for details) Patient presents via EMS with report of agitation and history of use of methamphetamines. Patient does report use of alcohol last night. Denies request for drug or alcohol rehab. Patient appears agitated. IV Ativan provided. Labs obtained and posted to chart. Hypokalemia and hypomagnesemia addressed. IV fluid hydration given x 2L boluses. 0700- Some labs still pending including UA/UDS. Sign out given to Dr. Knight for further evaluation and final disposition. Discussed current findings and plan with patient, who acknowledges understanding and agreement. (ODELL MONTGOMERY DO) Course & Med Decision Making Concern for methamphetamine abuse with hypokalemia and hypomagnesemia, replaced in ED. Patient with elevated lactic acidosis likely related to drug use. I reassessed patient. GCS15 A&Ox3 with [facility]. Reports he lives in his uncle's basement. Denies any falls, trauma, or abuse. Denies SI or HI. Has no active complaints. Does not recall any vomiting, diarrhea or fluid losses to explain his electrolyte imbalance. Patient was aware we were planning on repeating his lactic acid to ensure it was trending down. Patient knew plan would be to discharge him if lactic acid was down and have him follow-up with his primary care physician for repeat electrolytes in 1 week. Patient understood strict ED return precautions for syncope, chest pain, dizziness, light-headedness, or near-syncope. The patient has decided to leave our facility against medical advice. I have assessed patient's ability to make informed decision and feel the patient has the capacity to comprehend information regarding the current medical condition and appreciates the impact of the disease or condition and the consequences of various options for treatment, including foregoing treatment. The patient possesses the ability to evaluate all treatment options, comparing the risks and benefits of each option, communicate his or her choice in a consistent manner over time, and is able to make rational choices. I explained to the patient further testing, treatment, and evaluation I would like to perform in the emergency department visit as well as any possible alternatives that can be accomplished in a timely manner. I have outlined the possible risks of foreg oing any or all of these interventions and the patient understands and acknowledges that the decision to leave may result in undesirable consequences such as , permanent disability, and/or loss of current lifestyle. Even though leaving AMA is not ideal, I have instructed the patient to follow any discharge instructions given, take any medications prescribed, and resume care a s soon as possible with another provider. This conversation was witnessed by another member of the emergency department staff and we clearly communicated the patient is welcome to return anytime to continue care at our facility. (THERESE KNIGHT DO) Dragon Disclaimer: Dragon Disclaimer: This electronic medical record was generated, in whole or in part, using a voice recognition dictation system. (ODELL MONTGOMERY DO) Departure Departure: Impression: Primary Impression: Methamphetamine abuse Additional Impressions: Hypokalemia Hypomagnesemia Disposition: 07 AMA/ELOPED/LWBS Condition: STABLE Referrals: THERESE ZHOU (PCP) Patient Instructions: Alcohol and Drug Addiction, Finding Treatment, Hypokalemia, Hypomagnesemia, Methamphetamine Abuse, Complications, Potassium Content of Foods Additional Instructions: Please call [facility] at to seek help for your mental health and/or drug/alcohol abuse. ODELL MONTGOMERY DO Aug 26, 2020 06:30 THERESE KNIGHT DO Aug 26, 2020 09:47
[2020-08-26 06:32] VITALS: BP 168/91
[2020-08-26 06:39] LABS: BASO # 0.1 x10^3/uL (0.0-0.2); BASO % 1 % (0-3); EOS # 0.1 x10^3/uL (0.0-0.7); EOS % 1 % (0-3); HEMATOCRIT 47.7 % (39.0-53.0); HEMOGLOBIN 16.5 g/dL (13.0-17.5); LYMPH # 3.2 x10^3/uL (1.0-4.8); LYMPH % 20 % (24-48); MEAN CORPUSCULAR HEMOGLOBIN 30 pg (25-35); MEAN CORPUSCULAR HGB CONC 35 g/dL (31-37); MEAN CORPUSCULAR VOLUME 85 fL (79-100); MONO # 1.4 x10^3/uL (0.0-1.1); MONO % 9 % (0-9); NEUT # 10.9 x10^3uL (1.8-7.7); NEUT % 69 % (31-73); PLATELET COUNT 457 x10^3/uL (140-400); RED BLOOD COUNT 5.59 x10^6/uL (4.30-5.70); RED CELL DISTRIBUTION WIDTH 13.5 % (11.5-14.5); WHITE BLOOD COUNT 15.7 x10^3/uL (4.0-11.0)
--- NOTE | 2020-08-26 06:39 | EKG ---
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
[2020-08-26 06:45] LABS: CALCIUM 10.8 mg/dL (8.5-10.1); CREATININE 1.4 mg/dL (0.7-1.3); GFR 56.4; POTASSIUM 3.3 mmol/L (3.5-5.1)
[2020-08-26 06:51] LABS: ALBUMIN 4.5 g/dL (3.4-5.0); ALBUMIN/GLOBULIN RATIO 1.2 (1.0-1.7); MAGNESIUM 1.3 mg/dL (1.8-2.4); TOTAL BILIRUBIN 1.2 mg/dL (0.2-1.0); TOTAL PROTEIN 8.3 g/dL (6.4-8.2)
[2020-08-26 07:12] LABS: ACETAMIN < 2.0 mcg/mL (10-30); SALIC < 2.8 mg/dL (2.8-20.0)
[2020-08-26] MEDS ORDERED: MAGNESIUM SULFATE 2GM 50 ML IV ONE (07:30)
[2020-08-26] MEDS ORDERED: POTASSIUM CHLORIDE 20 MEQ TABLET.ER. PO ONE (07:30)
[2020-08-26 14:35] LABS: % ATYL 4 % (0-0); % BANDS 2 % (0-9); % EOS 1 % (0-5); % LYMPHS 17 % (24-48); % MONOS 8 % (0-10); % SEGS 68 % (35-66)
[2020-08-26 14:36] LABS: PLT ESTIMATE INCREASED (ADEQUATE)
== END 2020-08-26 09:20 | disposition left against medical advice (07) ==
LOC: ER 05:44
DX: F15.10 Other stimulant abuse, uncomplicated (principal); E87.6 Hypokalemia; E83.42 Hypomagnesemia; R00.0 Tachycardia, unspecified; F31.9 Bipolar disorder, unspecified; F20.9 Schizophrenia, unspecified; Z87.891 Personal history of nicotine dependence; F10.20 Alcohol dependence, uncomplicated; Y90.0 Blood alcohol level of less than 20 mg/100 ml
CPT/HCPCS: 36415; 80053; 80329; 82550; 83605; 83735; 85007; 85025; 93005; 96361; 96365; 96366; 96375; 99284; G0480; J2060; J3475; J7030

== ENCOUNTER 2020-12-29 17:15 | Emergency (ER) | payer SELFPAY ==
[~2020-12-29] VITALS: Ht 175.3 cm; Wt 78.4 kg
[2020-12-29 18:04] LABS: BASO # 0.1 x10^3/uL (0.0-0.2); BASO % 1 % (0-3); EOS % 0 % (0-3); HEMOGLOBIN 16.9 g/dL (13.0-17.5); LYMPH # 1.8 x10^3/uL (1.0-4.8); LYMPH % 13 % (24-48); MEAN CORPUSCULAR HEMOGLOBIN 30 pg (25-35); MEAN CORPUSCULAR HGB CONC 35 g/dL (31-37); MEAN CORPUSCULAR VOLUME 86 fL (79-100); MONO # 1.3 x10^3/uL (0.0-1.1); MONO % 9 % (0-9); NEUT # 11.3 x10^3uL (1.8-7.7); NEUT % 78 % (31-73); PLATELET COUNT 299 x10^3/uL (140-400); RED BLOOD COUNT 5.72 x10^6/uL (4.30-5.70); RED CELL DISTRIBUTION WIDTH 13.7 % (11.5-14.5); WHITE BLOOD COUNT 14.5 x10^3/uL (4.0-11.0)
--- NOTE | 2020-12-29 18:07 | PHYS DOC ---
Past History Past Medical History: Alcoholism, Anxiety, Bipolar, Depression, Schizophrenia (KASSIDY SIMEON DO) Past Surgical History: No Surgical History (KASSIDY SIMEON DO) Smoking: Quit Less Than 1 Year Alcohol Use: Heavy Drug Use: Cocaine, Marijuana, Methamphetamine (KASSIDY SIMEON DO) General Adult EDM: Chief Complaint: DRUG ABUSE HPI: HPI: 40-year-old male presents after overdose of methamphetamine. The patient is coming from home. He is feeling very anxious and tachycardic. He regularly uses methamphetamine but tries not to use "this much." He was not attempting to kill himself this time. Patient admits to previous suicide attempts by drug use. The patient has no medical complaints. (KASSIDY SIMEON DO) Review of Systems: Review of Systems: Constitutional: Denies fever or chills Eyes: Denies change in visual acuity HENT: Denies nasal congestion or sore throat Respiratory: Denies cough or shortness of breath Cardiovascular: Tachycardia. Denies chest pain or edema GI: Denies abdominal pain, nausea, vomiting, bloody stools or diarrhea : Denies dysuria Musculoskeletal: Denies back pain or joint pain Integument: Denies rash Neurologic: Denies headache, focal weakness or sensory changes Endocrine: Denies polyuria or polydipsia Lymphatic: Denies swollen glands Psychiatric: anxiety (KASSIDY SIMEON DO) Current Medications: Current Meds: Current Medications Medications (Trade) Dose Ordered Sig/Molly Start Time Stop Time Status Last Admin Dose Admin Lorazepam (Ativan Inj) 10 mg 1X ONCE 12/29/20 17:45 12/29/20 17:46 DC 12/29/20 17:46 10 MG (KASSIDY SIMEON DO) Allergies: Allergies: Allergies Coded Allergies Type Severity Reaction Last Updated Verified No Known Allergies Allergy Unknown 08/26/20 Yes (KASSIDY SIMEON DO) Physical Exam: PE: Constitutional: Well developed, well nourished, no acute distress, non-toxic appearance. [] HENT: Normocephalic, atraumatic, bilateral external ears normal, oropharynx moist, no oral exudates, nose normal. [] Eyes: PERRLA, EOMI, conjunctiva normal, no discharge. [] Neck: Normal range of motion, no tenderness, supple, no stridor. [] Cardiovascular: Heart rate 123, regular rhythm, no murmur [] Lungs & Thorax: Bilateral breath sounds clear to auscultation [] Abdomen: Bowel sounds normal, soft, no tenderness, no masses, no pulsatile masses. [] Skin: Warm, dry, no erythema, no rash. [] Back: No tenderness, no CVA tenderness. [] Extremities: No tenderness, no cyanosis, no clubbing, ROM intact, no edema. [] Neurologic: Alert and oriented X 3, normal motor function, normal sensory function, no focal deficits noted. [] Psychologic: Affect pressured, judgement impaired, mood anxious. [] (KASSIDY SIMEON DO) Current Patient Data: Vital Signs: Vital Signs Date Time Temp Pulse Resp B/P (MAP) Pulse Ox O2 Delivery O2 Flow Rate FiO2 12/29/20 17:26 98.1 127 38 144/94 97 Room Air (KASSIDY SIMEON DO) EKG: EKG: [] (KASSIDY SIMEON DO) EKG: Twelve-lead EKG was performed at 6:06 PM: Sinus tachycardia, rate is 109, computer is reading RS transition zone in precordial leads displaced to the left however I believe this is a nonischemic appearing EKG with otherwise normal axis and intervals (SOLO ROGERS MD) Radiology/Procedures: Radiology/Procedures: [] (KASSIDY SIMEON DO) Heart Score: C/O Chest Pain: N/A Risk Factors: Risk Factors: DM, Current or recent (<one month) smoker, HTN, HLP, family history of CAD, obesity. Risk Scores: Score 0 - 3: 2.5% MACE over next 6 weeks - Discharge Home Score 4 - 6: 20.3% MACE over next 6 weeks - Admit for Clinical Observation Score 7 - 10: 72.7% MACE over next 6 weeks - Early Invasive Strategies (KASSIDY SIMEON DO) C/O Chest Pain: No (SOLO ROGERS MD) Course & Med Decision Making: Course & Med Decision Making Pertinent Labs and Imaging studies reviewed. (See chart for details) [] (KASSIDY SIMEON DO) Course & Med Decision Making Patient taken as a handoff from the daytime physician Dr. Simeon in summary this patient came in for methamphetamine intoxication and psychiatric evaluation, he was agitated on arrival so was given some Ativan to help calm the patient, will monitor him closely, he is protecting his airway, stable, will get labs, drug screen once available and then once the patient is more in reviewable and subdued will consider having the psychiatric team assessed him He is neurologically intact, he is able to awaken answer questions, no signs of any head trauma, no signs of any serious infection no claudication for imaging in my opinion at this time Update at 1:10 AM: The patient had originally been given 4 mg of Ativan, has not slept comfortably and rested for about 7-1/2 to 8 hours and is now awake, alert, clinically sober and ambulatory with steady gait, no suicidal or homicidal thoughts, no active physical symptoms and I believe he is stable for discharge at this time Patient was seen in the ED for amphetamine abuse that improved in the ED after dose of Ativan and some rest, his work-up here was otherwise negative, there is no apparent evidence of any emergency medical pathology at this time, patient was advised follow-up with their primary care provider /physician in the next 24-48 hours and to return to the ED before then if any new or worsening / concerning symptoms had developed. All questions and concerns were addressed at time of disposition he was also given a list of local mental health resources for substance abuse counseling (SOLO ROGERS MD) Dragon Disclaimer: Dragon Disclaimer: This electronic medical record was generated, in whole or in part, using a voice recognition dictation system. (KASSIDY SIMEON DO) Departure Departure: Impression: Primary Impression: Methamphetamine abuse Disposition: HOME / SELF CARE / HOMELESS Condition: IMPROVED Referrals: THERESE ZHOU (PCP) 2 days Patient Instructions: Amphetamine Abuse Additional Instructions: Please do not use any illegal drugs especially methamphetamine it is a very dangerous substance. I want you to follow-up with your primary care provider in the next 48 hours . I want him to recheck your liver function, it was slightly abnormal but nothing dangerous, this should be repeated within 1 week and I am also referring you to the [facility], recommend follow-up with them in the next 48 hours as well, please return to the nearest emergency room before follow-up if any new or worsening/concerning symptoms develop [facility], [address] [address]. [phone]. 24 hr crisis line: [phone]. [email or web address] KASSIDY SIMEON DO Dec 29, 2020 18:07 SOLO ROGERS MD Dec 29, 2020 19:05
[2020-12-29 18:13] LABS: CALCIUM 10.6 mg/dL (8.5-10.1); GFR 82.8; POTASSIUM 3.4 mmol/L (3.5-5.1)
[2020-12-29 18:19] LABS: ALBUMIN 4.2 g/dL (3.4-5.0); ALBUMIN/GLOBULIN RATIO 1.1 (1.0-1.7); TOTAL BILIRUBIN 1.6 mg/dL (0.2-1.0); TOTAL PROTEIN 8.1 g/dL (6.4-8.2)
--- NOTE | 2020-12-29 18:25 | EKG ---
[address] [address] Test Date: 2020-12-29 Test Time: 18:06:10 Pat Name: VERONIQUE RICHARDSON Department: Room: Gender: M Training Coordinator: KATHY : 1980 Requested By: KASSIDY SIMEON Order Number: [id number] Reading MD: Measurements Intervals [place] Rate: 109 P: 213 AL: 152 QRS: 194 QRSD: 80 T: 16 QT: 332 QTc: 449 Interpretive Statements SINUS TACHYCARDIA ABNORMAL RIGHT SUPERIOR AXIS DEVIATION R-S TRANSITION ZONE IN V LEADS DISPLACED TO THE LEFT ABNORMAL ECG RI6.02 No previous ECG available for comparison
[2020-12-29 19:08] LABS: ACETAMIN < 2.0 mcg/mL (10-30); ETHANOL < 10 mg/dL (0-10); SALIC < 2.8 mg/dL (2.8-20.0)
[2020-12-29 20:40] LABS: AMPHETAMINE/METHAMPHETAMINE POS (NEG); BARBITURATES NEG (NEG); BENZODIAZEPINES NEG (NEG); CANNABINOIDS NEG (NEG); COCAINE POS (NEG); METHADONE NEG (NEG); OPIATES NEG (NEG); PHENCYCLIDINE NEG (NEG)
[2020-12-29 20:54] LABS: BACTERIA,URINE 0 /HPF (0-FEW); BILIRUBIN,URINE NEG (NEG); CLARITY,URINE HAZY; COLOR,URINE AMBER; GLUCOSE,URINE NEG (NEG); NITRITE,URINE NEG (NEG); SQUAMOUS EPITHELIAL CELL,UR OCC /LPF; UROBILINOGEN,URINE 0.2 mg/dL (0.2 mg/dL); WBC,URINE 0 /HPF (0-4)
[2020-12-30 02:10] VITALS: BP 106/77
== END 2020-12-30 02:10 | disposition home or self-care (01) ==
LOC: ER 17:15
DX: F15.10 Other stimulant abuse, uncomplicated (principal); F41.9 Anxiety disorder, unspecified; F31.9 Bipolar disorder, unspecified; F20.9 Schizophrenia, unspecified; F10.20 Alcohol dependence, uncomplicated; F12.10 Cannabis abuse, uncomplicated; F14.10 Cocaine abuse, uncomplicated; Z20.822 Contact with and (suspected) exposure to COVID-19; Z87.891 Personal history of nicotine dependence; Z91.5 Personal history of self-harm; Y90.0 Blood alcohol level of less than 20 mg/100 ml
CPT/HCPCS: 36415; 80053; 80307; 80329; 81001; 83690; 84443; 85025; 93005; 96374; 99285; C9803; G0480; J2060; U0003

== ENCOUNTER 2021-09-11 02:55 | Emergency (ER) | payer SELFPAY ==
[~2021-09-11] VITALS: Ht 175.3 cm; Wt 78.4 kg
[~2021-09-11 02:55] MED LIST changes: -FLUO10CA15 PO; +FLUO10CA17 PO
--- NOTE | 2021-09-11 03:01 | PHYS DOC ---
Past History Past Medical History: Alcoholism, Anxiety, Bipolar, Depression, Schizophrenia Past Surgical History: No Surgical History Smoking: Quit Less Than 1 Year Alcohol Use: Heavy Drug Use: Cocaine, Marijuana, Methamphetamine Adult General Chief Complaint Chief Complaint: DRUG ABUSE HPI HPI Patient is a 40-year-old male with a past medical history of anxiety, depression, bipolar and schizophrenia as well as alcohol and methamphetamine abuse who presents to the emergency department with a chief complaint of methamphetamine use just before coming to the emergency department. States he did smoke some. States it makes him anxious. Denies any other alcohol or drug use. Denies any recent trauma, travels, illnesses, fevers, neck pain, chest pain, shortness of breath, abdominal pain, nausea, vomiting diarrhea, dysuria, hematuria or blood in the stool. Denies need for medical work-up and just wants to be watched as he is anxious from methamphetamine. Review of Systems Review of Systems Review of systems otherwise unremarkable except noted in HPI Allergies Allergies Allergies Coded Allergies Type Severity Reaction Last Updated Verified No Known Allergies Allergy Unknown 08/26/20 Yes Physical Exam Physical Exam Constitutional: Well developed, well nourished, no acute distress, non-toxic dora earance. [] HENT: Normocephalic, atraumatic, bilateral external ears normal, oropharynx moist, no oral exudates, nose normal. [] Eyes:conjunctiva normal, no discharge. [] Neck: Normal range of motion, no tenderness, supple, no stridor. [] Cardiovascular:Heart rate regular rhythm, no murmur [] Lungs & Thorax: Bilateral breath sounds clear to auscultation, no respiratory distress [] Abdomen: soft, no tenderness, no masses, no pulsatile masses. [] Skin: Warm, dry, no erythema, no rash. [] Back: No tenderness, no CVA tenderness. [] Extremities: No tenderness, no cyanosis, no clubbing, ROM intact, no edema. [] Neurologic: Alert and oriented X 3, normal motor function, normal sensory function, able to sit, stand and walk without issue, no focal deficits noted. [] Psychologic: Affect normal, judgement normal, mood normal. [] EKG EKG [] Radiology/Procedures Radiology/Procedures [] Heart Score C/O Chest Pain: No Risk Factors: Risk Factors: DM, Current or recent (<one month) smoker, HTN, HLP, family history of CAD, obesity. Risk Scores: Risk Factors: DM, Current or recent (<one month) smoker, HTN, HLP, family history of CAD, obesity. Course & Med Decision Making Course & Med Decision Making Patient is a 40-year-old male who presents after using methamphetamine Vital signs notable for tachycardia and hypertension. Physical exam noted above. Given midazolam. [] Dragon Disclaimer Dragon Disclaimer This electronic medical record was generated, in whole or in part, using a voice recognition dictation system. Departure Departure: Impression: Primary Impression: Methamphetamine abuse Disposition: HOME / SELF CARE / HOMELESS Condition: STABLE Referrals: THERESE ZHOU (PCP) Patient Instructions: Methamphetamine Abuse, Complications Additional Instructions: Thank you for coming into the emergency department tonight and allowing us to take care of you. Please read the attached information carefully to go over things we discussed. As we discussed, please do not take any substances or medications not prescribed to you by a physician due to the serious health risks as we discussed. Please be sure to eat at least 3 nutritious meals daily and take a multivitamin. Please follow-up as soon as you can with your primary care physician update on your ED visit and set up a follow-up as soon as you can. Please come back with new or concerning symptoms as discussed. ИВАН MOLINA MD Sep 11, 2021 03:01
[2021-09-11 03:05] VITALS: BP 158/118
[2021-09-11] MEDS ORDERED: MIDAZOLAM HCL PF 5 MG/5 ML VIAL. IM ONE (03:15)
== END 2021-09-11 04:00 | disposition home or self-care (01) ==
LOC: ER 02:55
DX: F15.10 Other stimulant abuse, uncomplicated (principal); F41.9 Anxiety disorder, unspecified; F31.9 Bipolar disorder, unspecified; F20.9 Schizophrenia, unspecified; F10.20 Alcohol dependence, uncomplicated; Z87.891 Personal history of nicotine dependence; Y90.9 Presence of alcohol in blood, level not specified
CPT/HCPCS: 96372; 99283; J2250